=== PATIENT | male | born 1950 | race Caucasian/White ===

== ENCOUNTER → 2017-02-16 | Outpatient (CLI) | payer MEDICARE ==
[~2017-02-16] MED LIST: LIDOCAINE 1%, 20ML ONE; OMNIPAQUE 350 MG/ML, 100ML BOTTLE ONE
== END | disposition home or self-care (01) ==
LOC: RAD 13:57
PROVIDERS: ATTEND Otolaryngology
DX: R22.1 Localized swelling, mass and lump, neck (principal)
CPT/HCPCS: 36415; 70491; 82565; J3490; Q9967

== ENCOUNTER → 2017-02-22 | Outpatient (CLI) | payer MEDICARE ==
[~2017-02-22] MED LIST changes: -OMNIPAQUE 350 MG/ML, 100ML BOTTLE ONE
== END | disposition home or self-care (01) ==
LOC: RAD 09:35
PROVIDERS: ATTEND Otolaryngology
DX: R22.1 Localized swelling, mass and lump, neck (principal); R07.0 Pain in throat
CPT/HCPCS: 76942; 88305; 88333; J3490; 88304

== ENCOUNTER → 2017-03-06 | Outpatient (CLI) | payer MEDICARE | END | disposition home or self-care (01) | LOC: PETCFH 09:15 | PROVIDERS: ATTEND Specialist | DX: J39.2 Other diseases of pharynx (principal); J32.0 Chronic maxillary sinusitis; K76.89 Other specified diseases of liver; C09.9 Malignant neoplasm of tonsil, unspecified | CPT/HCPCS: 78815; A9552 ==

== ENCOUNTER → 2017-03-23 | Outpatient (CLI) | payer MEDICARE ==
[~2017-03-23] MED LIST changes: +CARB200T4 PO; +CISP1VIA3 IV; +LATA2.5D3 EACHEYE; -LIDOCAINE 1%, 20ML ONE; +MULT-658 PO; +OMEG-76 PO; +RISE35TA3 PO; +TAMS0.4C2 PO
[2017-03-23 07:57] LABS: ASPARTATE AMINO TRANSFERASE 31 U/L (15-37); BLOOD UREA NITROGEN 11 mg/dL (7-18)
== END | disposition home or self-care (01) ==
LOC: LAB 07:28
PROVIDERS: ATTEND Specialist
DX: Z51.11 Encounter for antineoplastic chemotherapy (principal); C09.9 Malignant neoplasm of tonsil, unspecified
CPT/HCPCS: 36415; 80053; 80156; 83735

== ENCOUNTER 2017-03-26 08:20 | Day surgery (SDC) | payer MEDICARE ==
[~2017-03-26] VITALS: Ht 167.6 cm; Wt 69.6 kg
[2017-03-26] MEDS ORDERED: LACTATED RINGERS 1,000 ML IV SCH (09:21)
[2017-03-26 09:22] VITALS: BP 116/75
[2017-03-26] MEDS ORDERED: EPINEPHRINE 1 MG/ML, 1ML ONE (10:19)
[2017-03-26] MEDS ORDERED: HEPARIN 1,000 UNITS/ML, 10ML ONE (10:19)
[2017-03-26] MEDS ORDERED: BUPIVACAINE/PF 0.5% ONE (10:19)
[2017-03-26] MEDS ORDERED: MIDAZOLAM 1 MG/ML, 2ML ONE (10:25)
[2017-03-26] MEDS ORDERED: FENTANYL PF 100 MCG/2ML ONE ×2 (10:25→11:38)
[2017-03-26] MEDS ORDERED: HYDROmorphone 1 MG/ML, 1ML ONE (10:26)
[2017-03-26] MEDS ORDERED: CEFOTETAN 1 GM ONE (10:38)
[2017-03-26] MEDS ORDERED: SUCCINYLCHOLINE 20 MG/ML, 10ML ONE (10:38)
[2017-03-26] MEDS ORDERED: DEXAMETHASONE 4 MG/ML, 1ML ONE (10:38)
[2017-03-26] MEDS ORDERED: EPHEDRINE 50 MG/ML, 1ML ONE (10:38)
[2017-03-26] MEDS ORDERED: PROPOFOL 10 MG/ML, 20ML ONE (10:38)
[2017-03-26] MEDS ORDERED: ONDANSETRON 2MG/ML, 2ML IVPush PRN (11:00)
[2017-03-26] MEDS ORDERED: MIDAZOLAM 1 MG/ML, 2ML IV PRN (11:00)
[2017-03-26] MEDS ORDERED: ACETAMINOPHEN 325 MG TABLET PO PRN (11:00)
[2017-03-26] MEDS ORDERED: OXYcodone 5 MG/5 ML ORAL.SOL UDC ONE ×2 (11:39→12:11)
[2017-03-26] MEDS: FENTANYL PF 100 MCG/2ML IV PRN ×2 (11:40→11:55)
[2017-03-26] MEDS: OXYcodone 5 MG/5 ML ORAL.SOL UDC PO PRN ×2 (11:41→12:11)
[2017-03-26] MEDS ORDERED: ACETAMINOPHEN 650 MG/20.3 ML UDC ONE (12:10)
[2017-03-26] MEDS ORDERED: HYDROmorphone 2 MG/ML, 1ML ONE (13:00)
[2017-03-26] MEDS ORDERED: HYDROmorphone 1 MG/ML, 1ML IV PRN (13:00)
[2017-03-26] MEDS ORDERED: KETOROLAC 30 MG/1 ML ONE (13:56)
[2017-03-26] MEDS ORDERED: KETOROLAC 30 MG/1 ML IVPush SCH (14:00)
== END 2017-03-26 15:20 ==
LOC: OUT 08:20
PROVIDERS: ATTEND Surgery
DX: C09.9 Malignant neoplasm of tonsil, unspecified (principal); N40.0 Benign prostatic hyperplasia without lower urinary tract symptoms; Z98.890 Other specified postprocedural states; Z72.89 Other problems related to lifestyle; Z87.891 Personal history of nicotine dependence
CPT/HCPCS: 36561; 43653; 77001; 93005; B4087; C1788; J0171; J0330; J1100; J1170; J1644; J1885; J2250; J2704; J3010; J3490; J7120; S0074

== ENCOUNTER → 2017-03-30 | Outpatient (CLI) | payer MEDICARE ==
[2017-03-30 11:57] LABS: BLOOD UREA NITROGEN 15 mg/dL (7-18)
[2017-03-30 12:00] LABS: ASPARTATE AMINO TRANSFERASE 28 U/L (15-37)
== END | disposition home or self-care (01) ==
LOC: LAB 11:26
PROVIDERS: ATTEND Specialist
DX: Z51.11 Encounter for antineoplastic chemotherapy (principal); C09.9 Malignant neoplasm of tonsil, unspecified
CPT/HCPCS: 36415; 80053; 80156; 83735

== ENCOUNTER → 2017-04-13 | Outpatient (CLI) | payer MEDICARE ==
[2017-04-13 11:48] LABS: ASPARTATE AMINO TRANSFERASE 19 U/L (15-37); BLOOD UREA NITROGEN 16 mg/dL (7-18)
== END | disposition home or self-care (01) ==
LOC: LAB 11:17
PROVIDERS: ATTEND Psychiatry & Neurology Neurology
DX: G40.409 Other generalized epilepsy and epileptic syndromes, not intractable, without status epilepticus (principal)
CPT/HCPCS: 36415; 80053; 80156; 83735

== ENCOUNTER → 2017-04-20 | Outpatient (CLI) | payer MEDICARE ==
[2017-04-20 12:32] LABS: BLOOD UREA NITROGEN 16 mg/dL (7-18)
[2017-04-20 13:02] LABS: ASPARTATE AMINO TRANSFERASE 21 U/L (15-37)
== END | disposition home or self-care (01) ==
LOC: LAB 11:15
PROVIDERS: ATTEND Specialist
DX: Z51.11 Encounter for antineoplastic chemotherapy (principal); C09.9 Malignant neoplasm of tonsil, unspecified
CPT/HCPCS: 36415; 80053; 83735

== ENCOUNTER → 2017-05-04 | Outpatient (CLI) | payer MEDICARE ==
[2017-05-04 11:50] LABS: BLOOD UREA NITROGEN 16 mg/dL (7-18)
[2017-05-04 11:54] LABS: ASPARTATE AMINO TRANSFERASE 17 U/L (15-37)
== END | disposition home or self-care (01) ==
LOC: LAB 11:19
PROVIDERS: ATTEND Specialist
DX: Z51.11 Encounter for antineoplastic chemotherapy (principal); C09.9 Malignant neoplasm of tonsil, unspecified
CPT/HCPCS: 36415; 80053; 83735

== ENCOUNTER → 2017-05-18 | Outpatient (CLI) | payer MEDICARE ==
[2017-05-18 16:20] LABS: ASPARTATE AMINO TRANSFERASE 21 U/L (15-37); BLOOD UREA NITROGEN 14 mg/dL (7-18)
== END | disposition home or self-care (01) ==
LOC: LAB 15:50
PROVIDERS: ATTEND Specialist
DX: C11.8 Malignant neoplasm of overlapping sites of nasopharynx (principal); G40.89 Other seizures; Z79.899 Other long term (current) drug therapy
CPT/HCPCS: 36415; 80053; 80156; 83735

== ENCOUNTER → 2017-05-18 | Outpatient (CLI) | payer MEDICARE | END | disposition home or self-care (01) | LOC: ROC 14:43 → EDSTATUS 14:54 | PROVIDERS: ATTEND Radiology Radiation Oncology | DX: C11.8 Malignant neoplasm of overlapping sites of nasopharynx (principal) | CPT/HCPCS: G0463 ==

== ENCOUNTER → 2017-06-26 | Outpatient (CLI) | payer MEDICARE ==
[2017-06-26 15:17] LABS: ASPARTATE AMINO TRANSFERASE 16 U/L (15-37); BLOOD UREA NITROGEN 19 mg/dL (7-18)
== END | disposition home or self-care (01) ==
LOC: LAB 14:08
PROVIDERS: ATTEND Specialist
DX: Z51.11 Encounter for antineoplastic chemotherapy (principal); C09.9 Malignant neoplasm of tonsil, unspecified
CPT/HCPCS: 36415; 80053; 83735

== ENCOUNTER → 2017-07-09 | Outpatient (CLI) | payer MEDICARE ==
[~2017-07-09] MED LIST changes: +GADOBUTROL 7.5 MMOL/7.5 ML PFS ONE
== END | disposition home or self-care (01) ==
LOC: CFH 09:11
PROVIDERS: ATTEND Specialist
DX: G93.89 Other specified disorders of brain (principal); C11.8 Malignant neoplasm of overlapping sites of nasopharynx
CPT/HCPCS: 70543; A9585

== ENCOUNTER → 2017-07-18 | Outpatient (CLI) | payer MEDICARE ==
[~2017-07-18] MED LIST changes: -GADOBUTROL 7.5 MMOL/7.5 ML PFS ONE
== END ==
LOC: ROC 12:45
PROVIDERS: ATTEND Radiology Radiation Oncology
DX: Z02.9 Encounter for administrative examinations, unspecified (principal)

== ENCOUNTER → 2017-07-18 | Outpatient (CLI) | payer MEDICARE | END | disposition home or self-care (01) | LOC: ROC 10:42 | PROVIDERS: ATTEND Radiology Radiation Oncology | DX: C11.8 Malignant neoplasm of overlapping sites of nasopharynx (principal) | CPT/HCPCS: G0463 ==

== ENCOUNTER → 2017-10-15 | Outpatient (CLI) | payer MEDICARE ==
[~2017-10-15] MED LIST changes: +GADOBUTROL 7.5 MMOL/7.5 ML VIAL ONE
== END | disposition home or self-care (01) ==
LOC: CFH 09:50
PROVIDERS: ATTEND Specialist
DX: C11.8 Malignant neoplasm of overlapping sites of nasopharynx (principal); H70.001 Acute mastoiditis without complications, right ear
CPT/HCPCS: 70543; A9585

== ENCOUNTER → 2017-10-18 | Outpatient (CLI) | payer MEDICARE ==
[~2017-10-18] MED LIST changes: -GADOBUTROL 7.5 MMOL/7.5 ML VIAL ONE
== END | disposition home or self-care (01) ==
LOC: PETCFH 08:39
PROVIDERS: ATTEND Radiology Radiation Oncology
DX: C11.8 Malignant neoplasm of overlapping sites of nasopharynx (principal)
CPT/HCPCS: 78815; A9552

== ENCOUNTER → 2017-10-22 | Outpatient (CLI) | payer MEDICARE | END | disposition home or self-care (01) | LOC: ROC 08:26 | PROVIDERS: ATTEND Radiology Radiation Oncology | DX: C11.8 Malignant neoplasm of overlapping sites of nasopharynx (principal); Z92.3 Personal history of irradiation; Z92.21 Personal history of antineoplastic chemotherapy | CPT/HCPCS: G0463 ==

== ENCOUNTER → 2018-05-17 | Outpatient (CLI) | payer MEDICARE | END | disposition home or self-care (01) | LOC: PETCFH 08:29 | PROVIDERS: ATTEND Otolaryngology | DX: C09.9 Malignant neoplasm of tonsil, unspecified (principal); C11.9 Malignant neoplasm of nasopharynx, unspecified | CPT/HCPCS: 78815; A9552 ==

== ENCOUNTER → 2018-06-24 | Outpatient (CLI) | payer MEDICARE | END | disposition home or self-care (01) | LOC: ROC 07:36 | PROVIDERS: ATTEND Radiology Radiation Oncology | DX: Z08 Encounter for follow-up examination after completed treatment for malignant neoplasm (principal); C11.8 Malignant neoplasm of overlapping sites of nasopharynx | CPT/HCPCS: G0463 ==

== ENCOUNTER 2018-12-04 08:00 | Outpatient (CLI) | payer MEDICARE ==
[~2018-12-04 08:00] MED LIST changes: +RISE35TA PO; -RISE35TA3 PO
== END 2018-12-04 23:59 | disposition home or self-care (01) ==
LOC: ROC 08:00
PROVIDERS: ATTEND Radiology Radiation Oncology
DX: Z08 Encounter for follow-up examination after completed treatment for malignant neoplasm (principal); Z85.22 Personal history of malignant neoplasm of nasal cavities, middle ear, and accessory sinuses
CPT/HCPCS: G0463

== ENCOUNTER 2019-09-04 02:24 | Emergency (ER) | payer MEDICARE ==
[~2019-09-04] VITALS: Ht 167.6 cm; Wt 70.4 kg
[2019-09-04 03:23] LABS: BASOPHILS % (AUTO) 0 % (0-1); EOSINOPHILS # (AUTO) 0.02 x10^3/uL (0-0.4); EOSINOPHILS % (AUTO) 1 % (1-7); LYMPHOCYTES # (AUTO) 0.34 x10^3/uL (1-3.4); LYMPHOCYTES % (AUTO) 7 % (22-44); MD NO; MEAN CORPUSCULAR HEMOGLOBIN 33.4 pg (27.5-34.5); MEAN CORPUSCULAR HGB CONC 33.7 g/dL (33.2-36.2); MEAN CORPUSCULAR VOLUME 99.2 fL (81-97); MEAN PLATELET VOLUME 8.2 fL (7.4-10.4); MONOCYTES # (AUTO) 0.29 x10^3/uL (0.2-0.8); MONOCYTES % (AUTO) 6 % (2-9); NEUTROPHILS # (AUTO) 4.22 x10^3/uL (1.8-6.8); NEUTROPHILS % (AUTO) 87 % (42-75); PLATELET COUNT 203 x10^3/uL (130-400); RED BLOOD COUNT 4.01 x10^6/uL (4.38-5.82); RED CELL DISTRIBUTION WIDTH 14.4 % (9.4-14.8)
[2019-09-04] MEDS ORDERED: ONDANSETRON 2MG/ML, 2ML IVPush ONE (03:30)
[2019-09-04] MEDS ORDERED: MAALOX/HYOSCYAMINE/LIDOCAINE 45 ML BTL PO ONE (03:30)
[2019-09-04] MEDS ORDERED: MORPHINE SULFATE 4 MG/ML, 1ML ONE ×2 (03:30→04:29)
[2019-09-04] MEDS ORDERED: ONDANSETRON 2MG/ML, 2ML ONE (03:30)
[2019-09-04] MEDS ORDERED: MAALOX/HYOSCYAMINE/LIDOCAINE 45 ML BTL ONE (03:31)
[2019-09-04 03:34] LABS: ALANINE AMINOTRANSFERASE 36 U/L (12-78); ALBUMIN 3.5 g/dL (3.4-5.0); ANION GAP 4 mmol/L (5-15); CALCIUM 8.3 mg/dL (8.5-10.1); CHLORIDE 98 mmol/L (98-107); CREATININE 0.85 mg/dL (0.7-1.3)
[2019-09-04 03:36] LABS: ALKALINE PHOSPHATASE 113 U/L (45-117); BILIRUBIN,TOTAL 0.2 mg/dL (0.2-1.0); TOTAL PROTEIN 7.4 g/dL (6.4-8.2)
[2019-09-04 03:49] LABS: TROPONIN I < 0.015 ng/mL (0.000-0.045)
--- NOTE | 2019-09-04 03:50 | NUR ---
DR. PRIETO AT BEDSIDE EVALUATING PT
[2019-09-04] MEDS: MORPHINE SULFATE 4 MG/ML, 1ML IVPush PRN ×2 (03:51→04:33)
--- NOTE | 2019-09-04 03:51 | NUR ---
IV ESTABLISHED, PT MEDICATED PER EMAR. 5 RIGHTS ADDRESSED
--- NOTE | 2019-09-04 03:53 | NUR ---
PT TO CT
--- NOTE | 2019-09-04 04:07 | NUR ---
PT CAME TO CT WITH 20G IN RIGHT AC THAT FAILED. STARTED 20 IN LEFT FOREARM. SENT PT BACK TO ER WITH IV.
[2019-09-04] MEDS ORDERED: OMNIPAQUE 350 MG/ML, 100ML BOTTLE ONE (04:12)
--- NOTE | 2019-09-04 04:30 | NUR ---
PT AMBULATORY TO RESTROOM, STEADY GAIT NOTED. PT STILL REPORTS ABD PAIN DESPITE PAIN MEDS.
--- NOTE | 2019-09-04 04:36 | NUR ---
PT REMEDICATED FOR PAIN. 5 RIGHTS ADDRESSED. WARMER PLACED ON PT. REMAINS AT BEDSIDE.
[2019-09-04] MEDS ORDERED: HYDROmorphone 1 MG/ML, 1ML INJ ONE (04:50)
[2019-09-04 04:56] VITALS: BP 143/104
--- NOTE | 2019-09-04 04:57 | NUR ---
PT MEDICATED FOR PAIN. 5 RIGHTS ADDRESSED. JULIANA JONES AT BEDSIDE UPDATING PT ON TEST RESULTS AND FINDINGS.
[2019-09-04] MEDS ORDERED: HYDROmorphone 1 MG/ML, 1ML INJ IVPush PRN (05:00)
--- NOTE | 2019-09-04 06:03 | NUR ---
Patient/Caregiver given discharge instructions and they have confirmed that they understand the instructions. Patient ambulatory with steady gait.
== END 2019-09-04 06:05 | disposition home or self-care (01) ==
LOC: ED 05:15
DX: R10.84 Generalized abdominal pain (principal); K59.00 Constipation, unspecified; R94.31 Abnormal electrocardiogram [ECG] [EKG]
CPT/HCPCS: 36415; 74177; 80053; 83690; 84484; 85025; 93005; 96374; 96375; 96376; 99284; J1170; J2270; J2405; Q9967

== ENCOUNTER → 2020-07-13 | Outpatient (CLI) | payer MEDICARE ==
[~2020-07-13] MED LIST changes: -LATA2.5D3 EACHEYE; +LATA2.5D4 EACHEYE
== END | disposition home or self-care (01) ==
LOC: CFH 13:34
PROVIDERS: ATTEND Internal Medicine Cardiovascular Disease
DX: Z13.6 Encounter for screening for cardiovascular disorders (principal); I25.10 Atherosclerotic heart disease of native coronary artery without angina pectoris; I10 Essential (primary) hypertension; E78.00 Pure hypercholesterolemia, unspecified; J98.4 Other disorders of lung
CPT/HCPCS: 75571